=== PATIENT | male | born 1950 ===

== ENCOUNTER 2021-11-30 12:43 | Inpatient (IN) | payer OTHER ==
[~2021-11-30] VITALS: Ht 152.4 cm; Wt 108.9 kg
[2021-11-30] MEDS ORDERED: COZAAR100 MG PO (13:07)
== END 2022-01-12 22:27 | disposition home or self-care (01) | DRG 193 ==
LOC: ER 12:43 → MEDI 23:45 → ICU-2 23:45 → ICU 12-01 20:54 → MEDI 12-02 21:09 → MEDJ 12-14 15:20 → MEDI 12-14 23:17
PROVIDERS: Radiology Vascular & Interventional Radiology; ADMIT Internal Medicine; ATTEND Internal Medicine
PROC: 3E0F7SF Introduction of Other Gas into Respiratory Tract, Via Natural or Artificial Opening (ICD-10-PCS; 2021-11-30)
PROC: 4A12X4Z Monitoring of Cardiac Electrical Activity, External Approach (ICD-10-PCS; 2021-12-02)
PROC: 02H633Z Insertion of Infusion Device into Right Atrium, Percutaneous Approach (ICD-10-PCS; 2021-12-08)
PROC: B518ZZA Fluoroscopy of Superior Vena Cava, Guidance (ICD-10-PCS; 2021-12-08)
PROC: 0JH63XZ Insertion of Tunneled Vascular Access Device into Chest Subcutaneous Tissue and Fascia, Percutaneous Approach (ICD-10-PCS; principal; 2021-12-08 17:20)
PROC: 5A1D70Z Performance of Urinary Filtration, Intermittent, Less than 6 Hours Per Day (ICD-10-PCS; 2021-12-09)
PROC: 5A1D70Z Performance of Urinary Filtration, Intermittent, Less than 6 Hours Per Day (ICD-10-PCS; 2021-12-11)
PROC: 5A1D70Z Performance of Urinary Filtration, Intermittent, Less than 6 Hours Per Day (ICD-10-PCS; 2021-12-13)
PROC: 5A1D70Z Performance of Urinary Filtration, Intermittent, Less than 6 Hours Per Day (ICD-10-PCS; 2021-12-15)
PROC: 5A1D70Z Performance of Urinary Filtration, Intermittent, Less than 6 Hours Per Day (ICD-10-PCS; 2021-12-17)
PROC: 5A1D70Z Performance of Urinary Filtration, Intermittent, Less than 6 Hours Per Day (ICD-10-PCS; 2021-12-20)
PROC: 5A1D70Z Performance of Urinary Filtration, Intermittent, Less than 6 Hours Per Day (ICD-10-PCS; 2021-12-22)
PROC: 05H633Z Insertion of Infusion Device into Left Subclavian Vein, Percutaneous Approach (ICD-10-PCS; 2021-12-24)
PROC: 5A1D70Z Performance of Urinary Filtration, Intermittent, Less than 6 Hours Per Day (ICD-10-PCS; 2021-12-24)
PROC: 0HBCXZX Excision of Left Upper Arm Skin, External Approach, Diagnostic (ICD-10-PCS; 2021-12-25)
PROC: 5A1D70Z Performance of Urinary Filtration, Intermittent, Less than 6 Hours Per Day (ICD-10-PCS; 2021-12-27)
PROC: 0BBC3ZX Excision of Right Upper Lung Lobe, Percutaneous Approach, Diagnostic (ICD-10-PCS; 2021-12-28)
PROC: 5A1D70Z Performance of Urinary Filtration, Intermittent, Less than 6 Hours Per Day (ICD-10-PCS; 2021-12-29)
PROC: 5A1D70Z Performance of Urinary Filtration, Intermittent, Less than 6 Hours Per Day (ICD-10-PCS; 2021-12-31)
PROC: 5A1D70Z Performance of Urinary Filtration, Intermittent, Less than 6 Hours Per Day (ICD-10-PCS; 2022-01-03)
PROC: 30243N1 Transfusion of Nonautologous Red Blood Cells into Central Vein, Percutaneous Approach (ICD-10-PCS; 2022-01-04)
PROC: 5A1D70Z Performance of Urinary Filtration, Intermittent, Less than 6 Hours Per Day (ICD-10-PCS; 2022-01-04)
PROC: 5A1D70Z Performance of Urinary Filtration, Intermittent, Less than 6 Hours Per Day (ICD-10-PCS; 2022-01-05)
PROC: 5A1D70Z Performance of Urinary Filtration, Intermittent, Less than 6 Hours Per Day (ICD-10-PCS; 2022-01-07)
PROC: 5A1D70Z Performance of Urinary Filtration, Intermittent, Less than 6 Hours Per Day (ICD-10-PCS; 2022-01-10)
PROC: 5A1D70Z Performance of Urinary Filtration, Intermittent, Less than 6 Hours Per Day (ICD-10-PCS; 2022-01-12)
DX: J18.8 Other pneumonia, unspecified organism (principal); N18.6 End stage renal disease; I12.0 Hypertensive chronic kidney disease with stage 5 chronic kidney disease or end stage renal disease; E87.2 Acidosis; J84.116 Cryptogenic organizing pneumonia; J81.1 Chronic pulmonary edema; J91.8 Pleural effusion in other conditions classified elsewhere; N17.8 Other acute kidney failure; R59.0 Localized enlarged lymph nodes; R09.02 Hypoxemia; J45.40 Moderate persistent asthma, uncomplicated; D63.1 Anemia in chronic kidney disease; F43.21 Adjustment disorder with depressed mood; R53.81 Other malaise; Z74.09 Other reduced mobility; L98.8 Other specified disorders of the skin and subcutaneous tissue; L30.8 Other specified dermatitis

== ENCOUNTER 2022-06-24 13:09 | Inpatient (IN) | payer OTHER ==
[~2022-06-24] VITALS: Ht 165.1 cm; Wt 81.6 kg
[~2022-06-24 13:09] MED LIST: COZAAR100 MG PO
[2022-06-24] MEDS ORDERED: PROTONIX20 MG (13:59)
[2022-06-24] MEDS ORDERED: DICY20TA (13:59)
[2022-06-24] MEDS ORDERED: BENADRYL25 MG (14:00)
[2022-06-24] MEDS ORDERED: [UNRECOGNIZED DRUG - OTHER] (14:01)
[2022-06-27] MEDS ORDERED: PHOSLO667 M1 (09:28)
[2022-06-27] MEDS ORDERED: AMLODIPINE BESYL5 MG (09:28)
[2022-06-27] MEDS ORDERED: LOSARTAN POTAS100 MG (09:28)
[2022-06-27] MEDS ORDERED: INSULIN LI100 UNIT/1 (09:28)
[2022-06-27] MEDS ORDERED: MIRCERA30 MCG/0.3 (09:29)
[2022-07-16] MEDS ORDERED: PREDNISONE20 MG PO (14:21)
== END 2022-07-17 12:10 | disposition home or self-care (01) | DRG 500 ==
LOC: ER 13:09 → MEDJ 20:44
PROVIDERS: Surgery; ADMIT Internal Medicine; ATTEND Internal Medicine
PROC: BW21YZZ Computerized Tomography (CT Scan) of Abdomen and Pelvis using Other Contrast (ICD-10-PCS; 2022-06-24)
PROC: BW24ZZZ Computerized Tomography (CT Scan) of Chest and Abdomen (ICD-10-PCS; 2022-06-24)
PROC: B24BZZZ Ultrasonography of Heart with Aorta (ICD-10-PCS; 2022-06-24)
PROC: 4A12X4Z Monitoring of Cardiac Electrical Activity, External Approach (ICD-10-PCS; 2022-06-25)
PROC: 5A1D70Z Performance of Urinary Filtration, Intermittent, Less than 6 Hours Per Day (ICD-10-PCS; 2022-06-27)
PROC: 02HV33Z Insertion of Infusion Device into Superior Vena Cava, Percutaneous Approach (ICD-10-PCS; 2022-06-28)
PROC: 5A1D70Z Performance of Urinary Filtration, Intermittent, Less than 6 Hours Per Day (ICD-10-PCS; 2022-07-01)
PROC: 0KB60ZX Excision of Left Shoulder Muscle, Open Approach, Diagnostic (ICD-10-PCS; principal; 2022-07-05 11:15)
PROC: 5A1D70Z Performance of Urinary Filtration, Intermittent, Less than 6 Hours Per Day (ICD-10-PCS; 2022-07-06)
PROC: BW28ZZZ Computerized Tomography (CT Scan) of Head (ICD-10-PCS; 2022-07-07)
PROC: 5A1D70Z Performance of Urinary Filtration, Intermittent, Less than 6 Hours Per Day (ICD-10-PCS; 2022-07-11)
PROC: 5A1D70Z Performance of Urinary Filtration, Intermittent, Less than 6 Hours Per Day (ICD-10-PCS; 2022-07-13)
PROC: 5A1D70Z Performance of Urinary Filtration, Intermittent, Less than 6 Hours Per Day (ICD-10-PCS; 2022-07-15)
DX: M33.22 Polymyositis with myopathy (principal); I21.A1 Myocardial infarction type 2; I40.8 Other acute myocarditis; N18.6 End stage renal disease; I12.0 Hypertensive chronic kidney disease with stage 5 chronic kidney disease or end stage renal disease; J84.9 Interstitial pulmonary disease, unspecified; E27.49 Other adrenocortical insufficiency; I24.9 Acute ischemic heart disease, unspecified; N17.8 Other acute kidney failure; M25.512 Pain in left shoulder; M25.511 Pain in right shoulder; E86.0 Dehydration; Z99.2 Dependence on renal dialysis; J44.9 Chronic obstructive pulmonary disease, unspecified; D63.1 Anemia in chronic kidney disease; F43.20 Adjustment disorder, unspecified; R13.19 Other dysphagia; Z20.822 Contact with and (suspected) exposure to COVID-19; Z74.01 Bed confinement status; J84.10 Pulmonary fibrosis, unspecified; E11.9 Type 2 diabetes mellitus without complications; Z79.4 Long term (current) use of insulin

== ENCOUNTER 2022-11-09 18:30 | Inpatient (IN) | payer OTHER ==
[~2022-11-09] VITALS: Ht 157.5 cm; Wt 102.1 kg
[~2022-11-09 18:30] MED LIST changes: +AMLODIPINE BESYL5 MG; +BENADRYL25 MG; +DICY20TA; +INSULIN LI100 UNIT/1; +LOSARTAN POTAS100 MG; +MIRCERA30 MCG/0.3; +PHOSLO667 M1; +PREDNISONE20 MG PO; +PROTONIX20 MG; +[UNRECOGNIZED DRUG - OTHER]
--- NOTE | 2022-11-09 18:55 | NUR ---
PATIENT IS RECEIEVED SAYING THAT HE FELL ON HIS HEAD A RESULT OF FEELING WEAK RIGHT BEFORE DIALISIS.
--- NOTE | 2022-11-09 19:35 | NUR ---
1923 SE RECIBE PTE MASCULINO ALERTA Y ORIENTADO EN [place] ESFERAS DEL AREA DE TRIAGE, SE UBICA EN CAMA #2 DE UNIDAD DE CRITICO, SE CONECTA PTE A MONITOR CARDIACO Y OXIMETRIA DE PULSO CONTINUA. ES EVALUADO POR , LA CUAL ORDENA TX. SE ORIENTA PTE Y FAMILIAR SOBRE ORDENES DE TX REFIEREN COMPRENDER. SE COLECTAN MUESTRAS DE LABORATORIOS Y SE CANALIZA VENA BAJO MEDIDAS ASEPTICAS. SE NOTIFICAN ABGS A PERSONAL DE TERAPIA RESPIRATORIA. SE NOTIFICAN XRAY Y CT A PERSONAL DE RADIOLOGIA. SE MARIA LUZ PTE EN CAMA NIVEL MAS BAJO CON BARANDAS ELEVADAS Y FRENOS COLOCADOS POR SEGURIDAD. SE AAYUSH Y REPORTAN S/V.
--- NOTE | 2022-11-09 23:11 | NUR ---
PTE ALERTA Y ORIENTADO P[place]UR[place] ESFERAS CON BUEN PATRON RESPIRATORIO, ESTA CONECTADO AL MONITOR CARDIACO, NBP Y OXIMETRIA CONTINUA. TIENE CANALIZACION EN BRAZO ISAK H/L #22, PERMANECE PATENTE WAYNE DE EDEMA Y ERITEMA. TIENE FISTULA INFECTADA EN BRAZO LIZET. SE OBSERVA GEOVANNA EN SUBCLAVIA DERECHA. SE COLOCA C/N @3LT.
--- NOTE | 2022-11-09 23:22 | NUR ---
SE ADMINISTRA CATAPRESS .2MG POR ORDEN MEDICA DE DR.CESAR SY.
[2022-11-10] MEDS ORDERED: FUROSEMIDE40 MG (13:40)
[2022-11-10] MEDS ORDERED: DILTIAZEM 24HR240 MG (13:40)
[2022-11-10] MEDS ORDERED: ALENDRONATE SOD70 MG (13:41)
[2022-11-10] MEDS ORDERED: PREDNISONE20 M1 (13:41)
[2022-11-10] MEDS ORDERED: CLONIDINE HCL0.2 MG (13:41)
[2022-11-10] MEDS ORDERED: GABAPENTIN300 M2 (13:41)
[2022-11-10] MEDS ORDERED: QUETIAPINE FUMA25 MG (13:41)
== END 2022-11-11 18:34 | disposition home or self-care (01) | DRG 682 ==
LOC: ER 18:30 → ICU-2 23:36
PROVIDERS: ADMIT Internal Medicine; ATTEND Internal Medicine
PROC: B246ZZZ Ultrasonography of Right and Left Heart (ICD-10-PCS; principal; 2022-11-09)
PROC: BR20ZZZ Computerized Tomography (CT Scan) of Cervical Spine (ICD-10-PCS; 2022-11-09)
PROC: 02HV33Z Insertion of Infusion Device into Superior Vena Cava, Percutaneous Approach (ICD-10-PCS; 2022-11-10)
DX: I12.0 Hypertensive chronic kidney disease with stage 5 chronic kidney disease or end stage renal disease (principal); N18.6 End stage renal disease; N17.8 Other acute kidney failure; I16.0 Hypertensive urgency; E11.22 Type 2 diabetes mellitus with diabetic chronic kidney disease; E87.5 Hyperkalemia; S00.83XA Contusion of other part of head, initial encounter; W18.09XA Striking against other object with subsequent fall, initial encounter; Y92.531 Health care provider office as the place of occurrence of the external cause; E11.65 Type 2 diabetes mellitus with hyperglycemia; Z79.4 Long term (current) use of insulin